=== PATIENT | female | born 1930 | race Caucasian/White ===

== ENCOUNTER 2017-04-21 13:20 | Emergency (ER) | payer MEDICARE, OTHER ==
[~2017-04-21] VITALS: Ht 160 cm; Wt 72.6 kg
[~2017-04-21 13:20] MED LIST: ALBU3IS NEB; AMLO5 PO; ASPI325 PO; ASPI325EC PO; ATOR20 PO; BENTYL10 MG PO; BUDE.5 NEB; CARI350; CITA20 PO; CLOP75 PO; CODACE30 PO; COMBIVENT RESPIM4 GM INH; Cipro500 MG PO; DIOVAN HCT PO; Diovan Hct 1601 EACH PO; FLUSAL1005; FURO20 PO; FURO40; Flagyl500 MG PO; Flonase 0.05% N16 GM; IPRAIS; Isosorbide Mono10 MG PO; K-Dur20 MEQ PO; LANS30EC; LANS30EC PO; LEVSOD75 PO; LOSA25 PO; MULVITMINF; NITR.4SL SL; OLOP.1OPSO BOTHEYES; OMEPRAZOLE MAGN20 MG PO; OXYB5 PO; OXYC5 PO; PANT40 PO; RANO500T PO; RXCODACET PO; Roxicodone5 MG PO; SERT50 PO; SPIHYD PO; Synthroid112 MCG PO; TRAM50; TRAM50 PO; TRAZ50 PO; TRIHYD253A; Zithromax250 MG PO; Zofran Odt4 MG PO
[2017-04-21 13:55] LABS: BASOPHILS ABSOLUTE AUTO 0.03 K/mm3 (0.00-0.23); BASOPHILS PERCENT AUTO 0 % (0-2); EOSINOPHILS ABSOLUTE AUTO 0.09 K/mm3 (0.00-0.68); EOSINOPHILS PERCENT AUTO 1 % (0-6); Hematocrit 38.5 % (33.0-51.0); Hemoglobin 12.4 g/dL (11.5-16.0); IMMATURE GRAN ABSOLUTE AUTO 0.04 K/mm3 (0.00-0.10); IMMATURE GRAN PERCENT AUTO 1 % (0-1); LYMPHOCYTES ABSOLUTE AUTO 3.01 K/mm3 (0.84-5.20); LYMPHOCYTES PERCENT AUTO 34 % (21-46); MONOCYTES ABSOLUTE AUTO 0.58 K/mm3 (0.16-1.47); MONOCYTES PERCENT AUTO 7 % (4-13); Mean Corpuscular HGB 28.6 pg (26.0-34.0); Mean Corpuscular HGB Conc 32.2 g/dL (31.5-36.5); Mean Corpuscular Volume 89 fL (80-100); Mean Platelet Volume 11.5 fL (9.1-12.4); NEUTROPHILS PERCENT AUTO 58 % (41-73); Platelet Count 162 K/mm3 (150-400); RDW Coefficient Variation 14.9 % (11.7-14.2); RDW Standard Deviation 48.5 fL (35.1-46.3); Red Blood Cell Count 4.34 M/mm3 (3.80-5.20); White Blood Cell Count 8.85 K/mm3 (4.00-11.30)
[2017-04-21 14:19] LABS: Alanine Aminotransfer (ALT/SGP 19 U/L (12-78); Albumin, Blood 3.7 g/dL (3.4-5.0); Alk Phos 62 U/L (50-136); Anion Gap 6 mmol/L (6-16); Aspartate Aminotrans (AST/SGOT 18 U/L (12-37); Bilirubin, Total 0.3 mg/dL (0.1-1.0); Blood Urea Nitrogen 14 mg/dL (8-24); Bun/Creatinine Ratio 16.2 (12.0-20.0); CO2, Blood 27 mmol/L (21-32); Chloride, Blood 109 mmol/L (98-108); Creatinine, Blood 0.87 mg/dL (0.40-1.00); Globulin, Blood 3.8 g/dL (2.2-4.0); Glomerular Filtration Rate >60 (60-); Glucose, Blood 94 mg/dL (70-99); Potassium, Blood 3.8 mmol/L (3.5-5.5); Sodium, Blood 142 mmol/L (136-145); Total Protein, Blood 7.5 g/dL (6.4-8.2)
[2017-04-21 15:06] LABS: Troponin I <0.015 ng/mL (0.000-0.040)
[2017-04-21 15:29] LABS: Source, Urine Clean Catch
[2017-04-21 15:32] LABS: Bilirubin, Urine Neg (Neg); Blood, Urine Neg (Neg); Glucose Qualitative, Urine Neg (Neg); Ketones, Urine Neg (Neg); Leukocyte Esterase, Urine 1+ (Neg); Nitrite, Urine Neg (Neg); Protein, Urine Neg (Neg); Specific Gravity, Urine 1.005 (1.003-1.022); Urobilinogen, Urine NORM (Normal)
[2017-04-21 15:49] LABS: Appearance, Urine Clear (Clear); Color, Urine Pale Yellow (P-Yellow)
[2017-04-21 15:50] LABS: Bacteria Few /hpf; Squamous Epithelial Cells Few /hpf (Few)
[2017-04-21] MEDS ORDERED: MECL12.5 PO (16:31)
== END 2017-04-21 17:15 | disposition home or self-care (01) ==
LOC: ER 13:20
PROVIDERS: Emergency Medicine; Nurse Practitioner Family
DX: R42 Dizziness and giddiness (principal); Z88.5 Allergy status to narcotic agent; Z88.2 Allergy status to sulfonamides; Z79.899 Other long term (current) drug therapy; Z79.82 Long term (current) use of aspirin; J44.9 Chronic obstructive pulmonary disease, unspecified; F32.9 Major depressive disorder, single episode, unspecified; I10 Essential (primary) hypertension; E78.5 Hyperlipidemia, unspecified
CPT/HCPCS: 36415; 71046; 80053; 81001; 84484; 85025; 87086; 93005; 93010; 96360; 99284; J7030

== ENCOUNTER 2018-07-27 11:39 | Emergency (ER) | payer MEDICARE, OTHER ==
[~2018-07-27] VITALS: Ht 160 cm; Wt 76.7 kg
[~2018-07-27 11:39] MED LIST changes: +MECL12.5 PO
[2018-07-27 12:29] LABS: BASOPHILS ABSOLUTE AUTO 0.04 K/mm3 (0.00-0.23); BASOPHILS PERCENT AUTO 0 % (0-2); EOSINOPHILS ABSOLUTE AUTO 0.21 K/mm3 (0.00-0.68); EOSINOPHILS PERCENT AUTO 2 % (0-6); Hematocrit 37.7 % (33.0-51.0); Hemoglobin 11.8 g/dL (11.5-16.0); IMMATURE GRAN ABSOLUTE AUTO 0.06 K/mm3 (0.00-0.10); IMMATURE GRAN PERCENT AUTO 1 % (0-1); LYMPHOCYTES ABSOLUTE AUTO 2.74 K/mm3 (0.84-5.20); LYMPHOCYTES PERCENT AUTO 29 % (21-46); MONOCYTES ABSOLUTE AUTO 0.63 K/mm3 (0.16-1.47); MONOCYTES PERCENT AUTO 7 % (4-13); Mean Corpuscular HGB 29.3 pg (26.0-34.0); Mean Corpuscular HGB Conc 31.3 g/dL (31.5-36.5); Mean Corpuscular Volume 94 fL (80-100); Mean Platelet Volume 11.1 fL (9.1-12.4); NEUTROPHILS ABSOLUTE AUTO 5.83 K/mm3 (1.96-9.15); NEUTROPHILS PERCENT AUTO 61 % (41-73); Platelet Count 174 K/mm3 (150-400); RDW Coefficient Variation 14.5 % (11.7-14.2); RDW Standard Deviation 49.3 fL (35.1-46.3); Red Blood Cell Count 4.03 M/mm3 (3.80-5.20); White Blood Cell Count 9.51 K/mm3 (4.00-11.30)
[2018-07-27 12:52] LABS: Alanine Aminotransfer (ALT/SGP 23 U/L (12-78); Albumin, Blood 3.7 g/dL (3.4-5.0); Alk Phos 72 U/L (50-136); Anion Gap 6 mmol/L (6-16); Aspartate Aminotrans (AST/SGOT 27 U/L (12-37); Bilirubin, Total 0.4 mg/dL (0.1-1.0); Blood Urea Nitrogen 19 mg/dL (8-24); Bun/Creatinine Ratio 23.6 (12.0-20.0); CO2, Blood 27 mmol/L (21-32); Calcium, Blood 8.9 mg/dL (8.5-10.1); Chloride, Blood 108 mmol/L (98-108); Globulin, Blood 3.8 g/dL (2.2-4.0); Glomerular Filtration Rate >60 (60-); Glucose, Blood 132 mg/dL (70-99); Potassium, Blood 4.4 mmol/L (3.5-5.5); Sodium, Blood 141 mmol/L (136-145); Total Protein, Blood 7.5 g/dL (6.4-8.2); Troponin I <0.015 ng/mL (0.000-0.040)
[2018-07-27] MEDS ORDERED: Percocet 5-3251 EACH PO (15:29)
== END 2018-07-27 15:37 | disposition home or self-care (01) ==
LOC: ER 11:39
PROVIDERS: Emergency Medicine
DX: S46.001A Unspecified injury of muscle(s) and tendon(s) of the rotator cuff of right shoulder, initial encounter (principal); E11.22 Type 2 diabetes mellitus with diabetic chronic kidney disease; N18.9 Chronic kidney disease, unspecified; J44.9 Chronic obstructive pulmonary disease, unspecified; K21.9 Gastro-esophageal reflux disease without esophagitis; I50.9 Heart failure, unspecified; W19.XXXA Unspecified fall, initial encounter
CPT/HCPCS: 36415; 73030; 80053; 83880; 84484; 85025; 93005; 93010; 99284-25

== ENCOUNTER 2018-11-28 07:50 | Day surgery (SDC) | payer MEDICARE, OTHER ==
[~2018-11-28] VITALS: Ht 134.6 cm; Wt 84.0 kg
[~2018-11-28 07:50] MED LIST changes: +Percocet 5-3251 EACH PO
[2018-11-28] MEDS ORDERED: POTCHL20ER PO (08:14)
[2018-11-28] MEDS ORDERED: OMEPRAZOLE20 MG PO (08:14)
[2018-11-28] MEDS ORDERED: ATOR40TA PO (10:04)
[2018-11-28] MEDS ORDERED: Aspir 8181 MG PO (10:04)
--- NOTE | 2018-11-28 12:35 | NUR ---
DISCHARGE INSTRUCTIONS REVIEWED ALL QUESTIONS ANSWERED. DEFLATED RIGHT TR BAND SITE SOFT WITH NO HEMATOMA AND NO PULSATILE BLEEDING.
--- NOTE | 2018-11-28 12:56 | NUR ---
DEFLATED RIGHT TR BAND REMOVED AND POLYMEM PLACED OVER RIGHT RADIAL SITE AND RIGHT WRIST BOARD IN PLACE. 20 G IV REMOVED FROM LEFT FOREARM WITH INTACT CANNULA. RIGHT RADIAL SITE STILL SOFT WITH NO HEMATOMA AND NO PULSATILE BLEEDING. RIGHT ARM SLING IN PLACED. PT ESCORTED OUT VIA WHEELCHAIR ESCORT.
== END 2018-11-28 13:05 | disposition home or self-care (01) ==
LOC: MHTC 07:50
PROC: B211YZZ Fluoroscopy of Multiple Coronary Arteries using Other Contrast (ICD-10-PCS; principal; 2018-11-28)
PROC: B215YZZ Fluoroscopy of Left Heart using Other Contrast (ICD-10-PCS; principal; 2018-11-28)
PROC: 4A023N7 Measurement of Cardiac Sampling and Pressure, Left Heart, Percutaneous Approach (ICD-10-PCS; principal; 2018-11-28)
DX: I25.10 Atherosclerotic heart disease of native coronary artery without angina pectoris (principal); E78.5 Hyperlipidemia, unspecified; I50.9 Heart failure, unspecified; E11.40 Type 2 diabetes mellitus with diabetic neuropathy, unspecified; I08.3 Combined rheumatic disorders of mitral, aortic and tricuspid valves; E78.00 Pure hypercholesterolemia, unspecified; Z79.899 Other long term (current) drug therapy; Z87.891 Personal history of nicotine dependence; Z88.5 Allergy status to narcotic agent; Z88.2 Allergy status to sulfonamides; Z88.6 Allergy status to analgesic agent
CPT/HCPCS: 93454; 99152; C1769; C1894; J1644; J2250; J3010; J7030; Q9967

== ENCOUNTER 2019-01-19 13:06 | Observation (INO) | payer MEDICARE, OTHER ==
[~2019-01-19] VITALS: Ht 160 cm; Wt 84.0 kg
[~2019-01-19 13:06] MED LIST changes: +ATOR40TA PO; +Aspir 8181 MG PO; +OMEPRAZOLE20 MG PO; +POTCHL20ER PO
[2019-01-19 15:05] LABS: BASOPHILS ABSOLUTE AUTO 0.03 K/mm3 (0.00-0.23); BASOPHILS PERCENT AUTO 0 % (0-2); EOSINOPHILS ABSOLUTE AUTO 0.13 K/mm3 (0.00-0.68); EOSINOPHILS PERCENT AUTO 1 % (0-6); Hematocrit 35.7 % (33.0-51.0); Hemoglobin 11.5 g/dL (11.5-16.0); IMMATURE GRAN ABSOLUTE AUTO 0.02 K/mm3 (0.00-0.10); IMMATURE GRAN PERCENT AUTO 0 % (0-1); LYMPHOCYTES ABSOLUTE AUTO 2.65 K/mm3 (0.84-5.20); LYMPHOCYTES PERCENT AUTO 28 % (21-46); MONOCYTES ABSOLUTE AUTO 0.67 K/mm3 (0.16-1.47); MONOCYTES PERCENT AUTO 7 % (4-13); Mean Corpuscular HGB 29.8 pg (26.0-34.0); Mean Corpuscular HGB Conc 32.2 g/dL (31.5-36.5); Mean Corpuscular Volume 93 fL (80-100); Mean Platelet Volume 10.9 fL (9.1-12.4); NEUTROPHILS PERCENT AUTO 63 % (41-73); Platelet Count 218 K/mm3 (150-400); RDW Coefficient Variation 14.6 % (11.7-14.2); RDW Standard Deviation 49.6 fL (35.1-46.3); Red Blood Cell Count 3.86 M/mm3 (3.80-5.20)
[2019-01-19 15:16] LABS: Alanine Aminotransfer (ALT/SGP 20 U/L (12-78); Albumin, Blood 3.6 g/dL (3.4-5.0); Albumin/Globulin Ratio 0.9 (0.8-1.8); Alk Phos 82 U/L (50-136); Anion Gap 5 mmol/L (6-16); Aspartate Aminotrans (AST/SGOT 15 U/L (12-37); Bilirubin, Total 0.2 mg/dL (0.1-1.0); Blood Urea Nitrogen 19 mg/dL (8-24); Bun/Creatinine Ratio 24.1 (12.0-20.0); CO2, Blood 27 mmol/L (21-32); Calcium, Blood 9.2 mg/dL (8.5-10.1); Chloride, Blood 107 mmol/L (98-108); Creatinine, Blood 0.79 mg/dL (0.40-1.00); Globulin, Blood 4.1 g/dL (2.2-4.0); Glomerular Filtration Rate >60 (60-); Glucose, Blood 121 mg/dL (70-99); Potassium, Blood 4.2 mmol/L (3.5-5.5); Sodium, Blood 139 mmol/L (136-145); Total Protein, Blood 7.7 g/dL (6.4-8.2)
[2019-01-19] MEDS ORDERED: PLAVIX75 MG PO (16:36)
[2019-01-19] MEDS ORDERED: DILTIAZEM PO (16:36)
[2019-01-19] MEDS ORDERED: LOSARTAN POTASS50 MG PO (16:37)
[2019-01-19] MEDS ORDERED: ISOSORBIDE MONO30 MG PO (16:37)
[2019-01-19] MEDS ORDERED: POTCHL20ER PO (17:52)
[2019-01-19] MEDS ORDERED: DOCU100 PO (17:53)
[2019-01-19] MEDS ORDERED: FURO20 PO (17:53)
--- NOTE | 2019-01-19 18:35 | NUR ---
SUMMARY PT ADMITTED FROM THE ER FOR CHEST PAIN, ARRIVED TO THE ROOM CHEST PAIN FREE, ALERT AND ORIENTED, ORIENTED THE PT TO THE ROOM AND CALL SYSTEM
--- NOTE | 2019-01-20 04:45 | NUR ---
SHIFT SUMMARY PT HAS RESTED MOST OF THE NIGHT, SHE HAD A BRIEF EPISOSE OF DULL CHEST PAIN BEFORE 2300. THAT SHE RATED ABOUT 3 (0-10) PAIN SHE SAID IT CAME AND WENT QUICKLY AND LASTED ABOUT 3 MINS. SHE DENIES SOB. TROPONIN'S HAVE BEEN NEGATIVE AND VITALS ARE STABLE. MEDICATED X1 WITH TYLENOL FOR A NITRO HEADACHE. PT HAS NOT HAD ANY OTHER COMAPLINTS SINCE THAT TIME FOR THE REMAINDER OF THE NIGHT. PT A/OX4, INDEPENDENT TO THE BATHROOM AND STEADY ON HER FEET. TELE IN PLACE WITH NSR. BED IN LOWEST POSITION, CALL LIGHT WITHIN REACH. WILL CONTINUE TO MONITOR AND REPORT TO ONCOMING RN.
[2019-01-20 05:51] LABS: BASOPHILS ABSOLUTE AUTO 0.04 K/mm3 (0.00-0.23); BASOPHILS PERCENT AUTO 0 % (0-2); EOSINOPHILS ABSOLUTE AUTO 0.17 K/mm3 (0.00-0.68); EOSINOPHILS PERCENT AUTO 2 % (0-6); Hematocrit 36.9 % (33.0-51.0); Hemoglobin 11.8 g/dL (11.5-16.0); IMMATURE GRAN ABSOLUTE AUTO 0.05 K/mm3 (0.00-0.10); IMMATURE GRAN PERCENT AUTO 1 % (0-1); LYMPHOCYTES ABSOLUTE AUTO 3.42 K/mm3 (0.84-5.20); LYMPHOCYTES PERCENT AUTO 33 % (21-46); MONOCYTES ABSOLUTE AUTO 0.69 K/mm3 (0.16-1.47); MONOCYTES PERCENT AUTO 7 % (4-13); Mean Corpuscular HGB 29.4 pg (26.0-34.0); Mean Corpuscular Volume 92 fL (80-100); Mean Platelet Volume 10.6 fL (9.1-12.4); NEUTROPHILS ABSOLUTE AUTO 6.05 K/mm3 (1.96-9.15); NEUTROPHILS PERCENT AUTO 58 % (41-73); Platelet Count 187 K/mm3 (150-400); RDW Coefficient Variation 14.6 % (11.7-14.2); RDW Standard Deviation 49.7 fL (35.1-46.3); Red Blood Cell Count 4.02 M/mm3 (3.80-5.20); White Blood Cell Count 10.42 K/mm3 (4.00-11.30)
[2019-01-20 06:12] LABS: Alanine Aminotransfer (ALT/SGP 20 U/L (12-78); Albumin, Blood 3.5 g/dL (3.4-5.0); Albumin/Globulin Ratio 0.9 (0.8-1.8); Alk Phos 77 U/L (50-136); Anion Gap 5 mmol/L (6-16); Aspartate Aminotrans (AST/SGOT 17 U/L (12-37); Bilirubin, Total 0.3 mg/dL (0.1-1.0); Blood Urea Nitrogen 16 mg/dL (8-24); Bun/Creatinine Ratio 20.6 (12.0-20.0); CO2, Blood 27 mmol/L (21-32); Calcium, Blood 9.2 mg/dL (8.5-10.1); Chloride, Blood 108 mmol/L (98-108); Creatinine, Blood 0.78 mg/dL (0.40-1.00); Globulin, Blood 3.7 g/dL (2.2-4.0); Glomerular Filtration Rate >60 (60-); Glucose, Blood 112 mg/dL (70-99); Sodium, Blood 140 mmol/L (136-145); Total Protein, Blood 7.2 g/dL (6.4-8.2)
--- NOTE | 2019-01-20 11:56 | NUR ---
Echocardiogram completed.
[2019-01-20] MEDS ORDERED: LISI20 PO (14:56)
[2019-01-20] MEDS ORDERED: FAMO40 PO (14:57)
--- NOTE | 2019-01-20 15:15 | NUR ---
SUMMARY/DISCHARGE PT DISCHARGED TO HOME, PT VERBALIZED UNDERSTANDING OF DISCHARGE INSTRUCTIONS, PT'S DR OFFICE NOTIFIED OF HER DISCHARGE AND THEY WILL CONTACT HER FOR FOLLOW UP, PT TAKEN OUT SAFELY VIA WHEELCHAIR
== END 2019-01-20 15:13 | disposition home or self-care (01) ==
LOC: ER 13:06 → MEDS 16:18 → ENPENDDIS 01-20 14:56 → MEDS 01-20 15:13
PROVIDERS: Emergency Medicine; ADMIT Internal Medicine
DX: R07.9 Chest pain, unspecified (principal); J44.9 Chronic obstructive pulmonary disease, unspecified; I13.0 Hypertensive heart and chronic kidney disease with heart failure and stage 1 through stage 4 chronic kidney disease, or unspecified chronic kidney disease; E11.22 Type 2 diabetes mellitus with diabetic chronic kidney disease; N18.9 Chronic kidney disease, unspecified; I50.9 Heart failure, unspecified; F32.9 Major depressive disorder, single episode, unspecified; I25.10 Atherosclerotic heart disease of native coronary artery without angina pectoris; E78.5 Hyperlipidemia, unspecified; E03.9 Hypothyroidism, unspecified; K21.9 Gastro-esophageal reflux disease without esophagitis; Z95.5 Presence of coronary angioplasty implant and graft; Z87.11 Personal history of peptic ulcer disease; Z90.49 Acquired absence of other specified parts of digestive tract; Z90.710 Acquired absence of both cervix and uterus; Z87.891 Personal history of nicotine dependence; Z88.2 Allergy status to sulfonamides; Z88.5 Allergy status to narcotic agent; Z79.82 Long term (current) use of aspirin; Z79.51 Long term (current) use of inhaled steroids; Z79.02 Long term (current) use of antithrombotics/antiplatelets; Z79.899 Other long term (current) drug therapy
CPT/HCPCS: 36415; 71045; 80053; 83735; 83880; 84484; 85025; 93005; 93010; 93306; 96372; 96374; 99285-25; A9270; G0378; J0360; J1650

== ENCOUNTER 2019-02-23 12:15 | Emergency (ER) | payer MEDICARE, OTHER ==
[~2019-02-23] VITALS: Ht 160 cm; Wt 85.3 kg
[~2019-02-23 12:15] MED LIST changes: +DILTIAZEM PO; +DOCU100 PO; +FAMO40 PO; +ISOSORBIDE MONO30 MG PO; +LISI20 PO; +LOSARTAN POTASS50 MG PO; +PLAVIX75 MG PO
== END 2019-02-23 13:06 | disposition home or self-care (01) ==
LOC: ER 12:15
DX: I10 Essential (primary) hypertension (principal); Z88.2 Allergy status to sulfonamides; Z88.5 Allergy status to narcotic agent; Z79.82 Long term (current) use of aspirin; Z79.899 Other long term (current) drug therapy; J44.9 Chronic obstructive pulmonary disease, unspecified
CPT/HCPCS: 99283

== ENCOUNTER 2019-03-05 20:17 | Emergency (ER) | payer MEDICARE, OTHER ==
[~2019-03-05] VITALS: Ht 160 cm; Wt 81.7 kg
[2019-03-05] MEDS ORDERED: TRAM50 PO (20:54)
[2019-03-05 20:56] LABS: BASOPHILS ABSOLUTE AUTO 0.02 K/mm3 (0.00-0.23); BASOPHILS PERCENT AUTO 0 % (0-2); EOSINOPHILS ABSOLUTE AUTO 0.09 K/mm3 (0.00-0.68); EOSINOPHILS PERCENT AUTO 1 % (0-6); Hemoglobin 11.8 g/dL (11.5-16.0); IMMATURE GRAN ABSOLUTE AUTO 0.04 K/mm3 (0.00-0.10); IMMATURE GRAN PERCENT AUTO 0 % (0-1); LYMPHOCYTES ABSOLUTE AUTO 2.47 K/mm3 (0.84-5.20); LYMPHOCYTES PERCENT AUTO 22 % (21-46); MONOCYTES ABSOLUTE AUTO 0.69 K/mm3 (0.16-1.47); MONOCYTES PERCENT AUTO 6 % (4-13); Mean Corpuscular HGB 29.2 pg (26.0-34.0); Mean Corpuscular HGB Conc 31.9 g/dL (31.5-36.5); Mean Corpuscular Volume 92 fL (80-100); Mean Platelet Volume 10.7 fL (9.1-12.4); NEUTROPHILS ABSOLUTE AUTO 7.85 K/mm3 (1.96-9.15); NEUTROPHILS PERCENT AUTO 70 % (41-73); Platelet Count 188 K/mm3 (150-400); RDW Coefficient Variation 14.4 % (11.7-14.2); RDW Standard Deviation 48.6 fL (35.1-46.3); Red Blood Cell Count 4.04 M/mm3 (3.80-5.20); White Blood Cell Count 11.16 K/mm3 (4.00-11.30)
[2019-03-05] MEDS ORDERED: ALBU90OI INH (20:56)
[2019-03-05 21:16] LABS: Alanine Aminotransfer (ALT/SGP 20 U/L (12-78); Albumin, Blood 3.6 g/dL (3.4-5.0); Albumin/Globulin Ratio 0.9 (0.8-1.8); Alk Phos 72 U/L (50-136); Anion Gap 5 mmol/L (6-16); Aspartate Aminotrans (AST/SGOT 22 U/L (12-37); Bilirubin, Total 0.3 mg/dL (0.1-1.0); Blood Urea Nitrogen 29 mg/dL (8-24); CO2, Blood 26 mmol/L (21-32); Calcium, Blood 8.9 mg/dL (8.5-10.1); Chloride, Blood 108 mmol/L (98-108); Creatinine, Blood 0.91 mg/dL (0.40-1.00); Globulin, Blood 3.9 g/dL (2.2-4.0); Glomerular Filtration Rate >60 (60-); Glucose, Blood 127 mg/dL (70-99); Potassium, Blood 4.2 mmol/L (3.5-5.5); Sodium, Blood 139 mmol/L (136-145); Total Protein, Blood 7.5 g/dL (6.4-8.2); Troponin I <0.015 ng/mL (0.000-0.040)
[2019-03-05] MEDS ORDERED: Medi-Meclizine25 MG PO (21:59)
== END 2019-03-05 22:18 | disposition home or self-care (01) ==
LOC: ER 20:17
PROVIDERS: Emergency Medicine
DX: R07.9 Chest pain, unspecified (principal); R42 Dizziness and giddiness; J44.9 Chronic obstructive pulmonary disease, unspecified; I10 Essential (primary) hypertension; Z79.899 Other long term (current) drug therapy; Z79.01 Long term (current) use of anticoagulants; Z79.51 Long term (current) use of inhaled steroids; Z79.82 Long term (current) use of aspirin
CPT/HCPCS: 36415; 71046; 80053; 83690; 84484; 85025; 93005; 93010; 99284-25; A9270

== ENCOUNTER 2019-06-18 17:10 | Emergency (ER) | payer MEDICARE, OTHER ==
[~2019-06-18] VITALS: Ht 160 cm; Wt 81.7 kg
[~2019-06-18 17:10] MED LIST changes: +ALBU90OI INH; +Medi-Meclizine25 MG PO
[2019-06-18 17:25] LABS: Calcium, Ionized (POC) 1.17 mmol/L (1.10-1.46); Chloride (POC) 104 mmol/L (98-108); Glucose (ISTAT POC) 124 mg/dL (70-99); Hemoglobin (POC) 10.9 g/dL (12.0-16.0); Potassium (POC) 3.5 mmol/L (3.5-5.5); Sodium (POC) 139 mmol/L (135-148); Total CO2 (POC) 24 mmol/L (21-32)
== END 2019-06-18 18:35 | disposition home or self-care (01) ==
LOC: ER 17:10
PROVIDERS: Emergency Medicine
DX: S01.81XA Laceration without foreign body of other part of head, initial encounter (principal); E11.22 Type 2 diabetes mellitus with diabetic chronic kidney disease; N18.9 Chronic kidney disease, unspecified; I50.9 Heart failure, unspecified; J44.9 Chronic obstructive pulmonary disease, unspecified; K21.9 Gastro-esophageal reflux disease without esophagitis; I25.10 Atherosclerotic heart disease of native coronary artery without angina pectoris; Z88.5 Allergy status to narcotic agent; Z88.2 Allergy status to sulfonamides; Z79.899 Other long term (current) drug therapy; Z79.02 Long term (current) use of antithrombotics/antiplatelets; Z79.51 Long term (current) use of inhaled steroids; Z79.82 Long term (current) use of aspirin; W18.30XA Fall on same level, unspecified, initial encounter
CPT/HCPCS: 12002; 70450; 80047; 85014; 93005; 93010; 99284-25

== ENCOUNTER 2020-11-29 14:33 | Emergency (ER) | payer MEDICARE, OTHER ==
[~2020-11-29] VITALS: Ht 162.6 cm; Wt 72.6 kg
[~2020-11-29 14:33] MED LIST changes: -ALBU90OI INH; -ATOR40TA PO; -LOSARTAN POTASS50 MG PO
[2020-11-29 15:06] LABS: Hematocrit 33.4 % (33.0-51.0); Hemoglobin 10.9 g/dL (11.5-16.0); Mean Corpuscular HGB 30.1 pg (26.0-34.0); Mean Corpuscular HGB Conc 32.6 g/dL (31.5-36.5); Mean Corpuscular Volume 92 fL (80-100); Mean Platelet Volume 10.8 fL (9.1-12.4); Platelet Count 159 K/mm3 (150-400); RDW Coefficient Variation 14.9 % (11.7-14.2); RDW Standard Deviation 50.6 fL (35.1-46.3); Red Blood Cell Count 3.62 M/mm3 (3.80-5.20); White Blood Cell Count 7.87 K/mm3 (4.00-11.30)
[2020-11-29 15:25] LABS: Albumin, Blood 2.8 g/dL (3.4-5.0); Albumin/Globulin Ratio 0.7 (0.8-1.8); Bilirubin, Total 0.5 mg/dL (0.1-1.0); Bun/Creatinine Ratio 17.1 (12.0-20.0); Calcium, Blood 8.4 mg/dL (8.5-10.1); Creatinine, Blood 1.46 mg/dL (0.40-1.00); Globulin, Blood 4.2 g/dL (2.2-4.0); Potassium, Blood 3.8 mmol/L (3.5-5.5); Troponin I 0.015 ng/mL (0.000-0.040)
[2020-11-29 16:47] LABS: BASOPHILS PERCENT MAN 0 % (0-2); EOSINOPHILS ABSOLUTE MAN 0.07 K/mm3 (0.00-0.68); EOSINOPHILS PERCENT MAN 1 % (0-6); LYMPHOCYTES % ATYPICAL MANUAL 1 % (0-0); LYMPHOCYTES ABSOLUTE MAN 0.86 K/mm3 (0.84-5.20); LYMPHOCYTES PERCENT MAN 10 % (21-46); MONOCYTES ABSOLUTE MAN 0.15 K/mm3 (0.16-1.47); MONOCYTES PERCENT MAN 2 % (4-13); NEUTROPHILS ABSOLUTE MAN 6.76 K/mm3 (1.96-9.15); SEG NEUTROPHILS PERCENT MAN 86 % (41-73); TOTAL CELLS COUNTED 100
[2020-11-29] MEDS ORDERED: POTA10T PO (16:53)
[2020-11-29] MEDS ORDERED: Prozac20 MG PO (16:54)
[2020-11-29] MEDS ORDERED: DOXY100 PO (17:11)
== END 2020-11-29 18:03 | disposition home or self-care (01) ==
LOC: ER 14:33
PROVIDERS: Emergency Medicine
DX: U07.1 COVID-19 (principal); J12.82 Pneumonia due to coronavirus disease 2019; J44.9 Chronic obstructive pulmonary disease, unspecified; E11.22 Type 2 diabetes mellitus with diabetic chronic kidney disease; N18.9 Chronic kidney disease, unspecified; K21.9 Gastro-esophageal reflux disease without esophagitis; I50.9 Heart failure, unspecified; E78.5 Hyperlipidemia, unspecified; I25.10 Atherosclerotic heart disease of native coronary artery without angina pectoris; Z88.5 Allergy status to narcotic agent; Z88.2 Allergy status to sulfonamides; Z79.899 Other long term (current) drug therapy; Z79.02 Long term (current) use of antithrombotics/antiplatelets; Z79.82 Long term (current) use of aspirin
CPT/HCPCS: 36415; 71045; 80053; 83880; 84484; 85025; 85379; 93005; 93010; 99285-25; A9270

== ENCOUNTER 2020-12-02 12:15 | Inpatient (IN) | payer MEDICARE, OTHER ==
[~2020-12-02] VITALS: Ht 162.6 cm; Wt 79.0 kg
[~2020-12-02 12:15] MED LIST changes: +DOXY100 PO; +POTA10T PO; +Prozac20 MG PO
[2020-12-02] MEDS ORDERED: AMLODIPINE BESYL5 MG PO (13:05)
[2020-12-02] MEDS ORDERED: DOXY100 PO (13:05)
[2020-12-02] MEDS ORDERED: LOSARTAN POTAS100 M1 PO (13:06)
[2020-12-02] MEDS ORDERED: ATOR40TA PO (13:08)
[2020-12-02] MEDS ORDERED: QUETIAPINE FUMA25 MG PO (13:08)
[2020-12-02] MEDS ORDERED: MEMA10 PO (13:09)
[2020-12-02] MEDS ORDERED: SYNTHROID125 MC1 PO (13:09)
[2020-12-02 13:18] LABS: Albumin, Blood 2.6 g/dL (3.4-5.0); Albumin/Globulin Ratio 0.5 (0.8-1.8); Bilirubin, Total 0.5 mg/dL (0.1-1.0); Bun/Creatinine Ratio 29.7 (12.0-20.0); Calcium, Blood 9.5 mg/dL (8.5-10.1); Creatinine, Blood 1.82 mg/dL (0.40-1.00); Globulin, Blood 5.3 g/dL (2.2-4.0); Potassium, Blood 4.7 mmol/L (3.5-5.5); Total Protein, Blood 7.9 g/dL (6.4-8.2); Troponin I 0.089 ng/mL (0.000-0.040)
[2020-12-02 13:47] LABS: BASOPHILS ABSOLUTE AUTO 0.06 K/mm3 (0.00-0.23); BASOPHILS PERCENT AUTO 0 % (0-2); EOSINOPHILS ABSOLUTE AUTO 0.01 K/mm3 (0.00-0.68); EOSINOPHILS PERCENT AUTO 0 % (0-6); Hematocrit 34.5 % (33.0-51.0); Hemoglobin 11.5 g/dL (11.5-16.0); Mean Corpuscular HGB Conc 33.3 g/dL (31.5-36.5); Mean Corpuscular Volume 90 fL (80-100); NRBC ABSOLUTE 0.07 K/mm3 (0.00-0.02); NRBC Auto 0.4 /100 WBC (0.0-0.2); RDW Coefficient Variation 15.4 % (11.7-14.2); RDW Standard Deviation 50.7 fL (35.1-46.3); Red Blood Cell Count 3.83 M/mm3 (3.80-5.20); White Blood Cell Count 19.18 K/mm3 (4.00-11.30)
[2020-12-02 14:05] LABS: Influenza A, PCR NEGATIVE (NEGATIVE); Influenza B, PCR NEGATIVE (NEGATIVE); Resp Syncytial Virus, PCR NEGATIVE (NEGATIVE)
[2020-12-02 14:12] LABS: SARS-Cov-2 (COVID-19) PCR, MMC POSITIVE (NEGATIVE)
[2020-12-02 14:22] LABS: IMMATURE GRAN ABSOLUTE AUTO 0.39 K/mm3 (0.00-0.10); IMMATURE GRAN PERCENT AUTO 2 % (0-1); LYMPHOCYTES ABSOLUTE AUTO 1.84 K/mm3 (0.84-5.20); LYMPHOCYTES PERCENT AUTO 10 % (21-46); MONOCYTES PERCENT AUTO 6 % (4-13); Mean Platelet Volume 10.9 fL (9.1-12.4); NEUTROPHILS ABSOLUTE AUTO 15.78 K/mm3 (1.96-9.15); NEUTROPHILS PERCENT AUTO 82 % (41-73); Platelet Count 459 K/mm3 (150-400)
[2020-12-02] MEDS ORDERED: ALBU90OI INH (14:36)
[2020-12-02 17:16] LABS: Base Excess Venous -7.2 mmol/L; Bicarbonate Venous 18.6 mmol/L (24.0-30.0); PCO2 Venous 36.4 mmHg (38-42); pH Blood Venous 7.32 (7.34-7.37)
--- NOTE | 2020-12-02 21:23 | NUR ---
PT TRANSFERED TO ICU 3 PER ORDER. ALL BELONGINGS WITH PT.
--- NOTE | 2020-12-03 00:55 | NUR ---
RECIEVED REPORT FROM ERWIN RN, PATIENT TRANSFERRED FROM PCU 12 TO ICU 3 @9405. SLID PATIENT TO BED WITH MAXIMUM ASSIST. PATIENT ALERT AND CONFUSED, UNABLE TO FOLLOW COMMANDS, PULLING AT RESTRAINTS ATTEMPTING TO TAKE BIPAP OFF. CALLED HOSPITALIST AND ATIVAN GIVEN. 02 SATS 86% ON BIPAP INITIALLY AND RT TITRATED PRESSURE TO 18/14 FI02 100%. RR IN THE 30s-40s. 02 SATS CURRENTLY 92% ON THOSE SETTINGS. HR IRREGULAR 60s-70s. PATIENT INCONTINENT OF BLADDER, ATTENDS IN PLACE. REPOSITIONED Q2 HOURS. PATIENT DOES NOT TOLERATE ANY STIMULI WELL. ATTEMPTED ORAL CARE BUT PATIENT BEGAN THRASHING AROUND. BILATERAL WRIST RESTRAINT IN PLACE.
[2020-12-03 03:37] LABS: BASOPHILS ABSOLUTE AUTO 0.04 K/mm3 (0.00-0.23); BASOPHILS PERCENT AUTO 0 % (0-2); EOSINOPHILS PERCENT AUTO 0 % (0-6); Mean Corpuscular HGB 30.1 pg (26.0-34.0); Mean Corpuscular HGB Conc 33.3 g/dL (31.5-36.5); Mean Corpuscular Volume 90 fL (80-100); Mean Platelet Volume 10.3 fL (9.1-12.4); NRBC ABSOLUTE 0.07 K/mm3 (0.00-0.02); NRBC Auto 0.4 /100 WBC (0.0-0.2); Platelet Count 374 K/mm3 (150-400); RDW Coefficient Variation 15.2 % (11.7-14.2); RDW Standard Deviation 50.5 fL (35.1-46.3); Red Blood Cell Count 3.32 M/mm3 (3.80-5.20); White Blood Cell Count 15.91 K/mm3 (4.00-11.30)
[2020-12-03 03:38] LABS: IMMATURE GRAN ABSOLUTE AUTO 0.33 K/mm3 (0.00-0.10); IMMATURE GRAN PERCENT AUTO 2 % (0-1); LYMPHOCYTES ABSOLUTE AUTO 1.86 K/mm3 (0.84-5.20); LYMPHOCYTES PERCENT AUTO 12 % (21-46); MONOCYTES ABSOLUTE AUTO 0.65 K/mm3 (0.16-1.47); MONOCYTES PERCENT AUTO 4 % (4-13); NEUTROPHILS ABSOLUTE AUTO 13.03 K/mm3 (1.96-9.15); NEUTROPHILS PERCENT AUTO 82 % (41-73)
[2020-12-03 03:50] LABS: Albumin, Blood 2.3 g/dL (3.4-5.0); Anion Gap 9 mmol/L (6-16); Blood Urea Nitrogen 66 mg/dL (8-24); Bun/Creatinine Ratio 38.8 (12.0-20.0); CO2, Blood 20 mmol/L (21-32); Chloride, Blood 117 mmol/L (98-108); Glomerular Filtration Rate 28 (60-); Glucose, Blood 203 mg/dL (70-99); Phosphorus, Blood 4.2 mg/dL (2.5-4.9); Potassium, Blood 4.2 mmol/L (3.5-5.5); Sodium, Blood 146 mmol/L (136-145)
--- NOTE | 2020-12-03 04:37 | NUR ---
SHIFT SUMMARY PATIENT HAS BECOME SLIGHTLY LESS AGITATED BUT REMAINS CONFUSED AND UNABLE TO FOLLOW COMMANDS, DIFFICULT TO CONSOLE AND UNAWARE OF WHAT IS HAPPENING. REMIANS ON BIPAP 23/01 FI02 100%. RR IN THE 30s. 02 SATS 91-93%. HR SINUS ARRHYTHMIA IN THE 60s-70s. BP STABLE. INCONTNENT OF BLADDER BRIEF IN PLACE. PATIENT TRIES TO PULL BIPAP OFF, WRIST RESTRAINTS REMAIN IN PLACE. Q2 HOUR TURNS. NO BM THIS SHIFT.
--- NOTE | 2020-12-03 08:00 | NUR ---
ASSUMED CARE: REPORT RECEIVED FROM NICOLA Singh RN. ASSUMED CARE OF THIS PT AT APPROX 0700. ON ASSESSMENT, THE PT IS AGITATED. SHE IS AWAKE, BUT ORIENTED TO NONE & UNABLE TO FOLLOW DIRECTIONS. BILAT SOFT WRIST RESTRAINTS IN PLACE FOR PT CONTINUED ATTEMPTS TO REMOVE BIPAP. LS ARE DIM T/O, PT ON BIPAP W/ SETTINGS: 16/12 & 100% FIO2. O2 SATS > 90% ON AVG, DESATS TO 86% W/ INCREASED AGITATION & TACHYPNEA. MONITOR SHOWS SR W/ PACs, HR 60-80s, HTN INCREASED W/ AGITATION. PT NPO R/T BIPAP DEPENDENCE. INCONTINENT OF URINE W/ ATTENDS IN PLACE & DIURESIS PER EMAR. SKIN CONDITION OVERALL FRAGILE & ECCHYMOTIC, Q2H REPISITIONING TO MAINTAIN SKIN INTEGRITY. WILL CONTINUE TO MONITOR & UPDATE NEEDED.
--- NOTE | 2020-12-03 08:10 | NUR ---
DR BLANCO: PLAN OF CARE DISCUSSED W/ THIS PROVIDER. REQUEST FOR INCREASED ATIVAN DOSING/ FREQUENCY OR ADJUNCT MED ORDER TO MANAGE PT AGITATION & ANXIETY. HE STS PRECEDEX MAY BE CONSIDERED FOR THIS PT IF SHE CONTINUES TO NOT TOLERATE BIPAP W/ ATIVAN ORDERED.
--- NOTE | 2020-12-03 08:10 | NUR ---
DR BLANCO: PLAN OF CARE DISCUSSED W/ THIS PROVIDER. REQUEST FOR INCREASED ATIVAN DOSING/ FREQUENCY OR ADJUNCT MED ORDER TO MANAGE PT AGITATION & ANXIETY. HE STS OKAY TO ORDER PRECEDEX IF NECESSARY TO KEEP PT CALM WHILE WEARING BIPAP.
--- NOTE | 2020-12-03 17:19 | NUR ---
SHIFT SUMMARY: NO ACUTE CHANGES THIS SHIFT. PALLIATIVE CARE HAS WORKED CLOSELY W/ PT's SONS TO ENSURE THAT PT's WISHES ARE BEING HONORED - SEE NOTE. PT REMAINS CONFUSED, IS REDIRECTABLE AT TIMES & ALLOWS SOME CARE TO BE PROVIDED THIS SHIFT. SHE HAS TOLERATED PRN DOSES OF ATIVAN WELL & IS ABLE TO REST FOR A SMALL PERIOD OF TIME IN BETWEEN DOSES. LS ARE DIM T/O, PT ON BIPAP W/ SETTINGS: 16/12 & 100% FIO2 W/ O2 SATS > 90% ON AVG. SHE DOES NOT TOLERATE ORAL CARE & BECOMES INCREASINGLY ANXIOUS. MONITOR SHOWS SR W/ PACs, HR 60-80s, BP STABLE. NPO R/T BIPAP DEPENDENCE. INCONTINENT OF URINE, ATTENDS IN PLACE, DIURESIS PER EMAR. SKIN CONDITION OVERALL FRAGILE, ECCHYMOTIC. Q2H REPOSITIONING TO MAINTAIN SKIN INTEGRITY. WILL CONTINUE TO MONITOR & REPORT OFF TO ONCOMING RN.
--- NOTE | 2020-12-03 19:05 | NUR ---
PATIENT REPORT RECEIVED FROM [facility] PATIENT DNR STATUS PATIENT AGITED, CONFUSED SB NOTED IN THE MONITOR BIPAP 23/01 100% SKIN LACERATION IN THE RIGHT ARM LR AT 75 ML/HR WILL TO CONTINUE TO MONITOR
[2020-12-04 03:25] LABS: Hematocrit 31.2 % (33.0-51.0); Hemoglobin 10.4 g/dL (11.5-16.0); Mean Corpuscular HGB Conc 33.3 g/dL (31.5-36.5); Mean Corpuscular Volume 90 fL (80-100); Mean Platelet Volume 10.2 fL (9.1-12.4); NRBC Auto 0.5 /100 WBC (0.0-0.2); Platelet Count 445 K/mm3 (150-400); RDW Coefficient Variation 14.9 % (11.7-14.2); RDW Standard Deviation 49.1 fL (35.1-46.3); Red Blood Cell Count 3.47 M/mm3 (3.80-5.20); White Blood Cell Count 20.44 K/mm3 (4.00-11.30)
[2020-12-04 03:38] LABS: Bun/Creatinine Ratio 48.3 (12.0-20.0); Calcium, Blood 8.9 mg/dL (8.5-10.1); Creatinine, Blood 1.43 mg/dL (0.40-1.00); Potassium, Blood 3.9 mmol/L (3.5-5.5)
--- NOTE | 2020-12-04 09:59 | NUR ---
CARE OF PT ASSUMED AT 0700. ON ASSESSMENT IV TO LEFT AC NOT PATENT, LR AND PRECEDEX ON STANDBY. PT RESTLESS AND DIAPHORETIC, DOES NOT OPEN EYES, DOES NOT FOLLOW COMMANDS, MUMBLES, NO WORDS. POWERGLIDE PLACED TO GILMER. PRECEDEX STARTED AT 0.2MCG, LR AT 75. SATS 89-91%, RESP 30'S. ATTENDS DRY. BP STABLE. HEART RATE DROPPED SLIGHTLY TO 50-60'S AFTER PRECEDEX STARTED, PT REMAINS REESTLESS, BUT LESS SO W PRECEDEX. PT'S SON DEANDRE UPDATED VIA PHONE. FAMILY WILL CONSIDER COMFORT CARE IF SHE CONTINUES TO DECLINE. DR BLANCO AT BEDSIDE THIS AM, FULL UPDATE GIVEN.
--- NOTE | 2020-12-04 11:02 | NUR ---
PT GIVEN BEDBATH, PT VERY CONFUSED FOR BATH, EYES CLOSED, FIGHTING AGAINST CARE, THRASHING, PANICKED. BIPAP MASK REMOVED BRIEFLY TO REPOSITION AND FIX AIR LEAK, SATS DROPPED TO 70%. AIR LEAK 30-40, SATS 90-95%. PRECEDEX REMAINS AT 0.2MCG, PT CALM AND SLEEPING NOW.
--- NOTE | 2020-12-04 13:37 | NUR ---
PT RESTLESS IN BED, EYES CLOSED, RESP RATE 30-TO HIGH 40'S, BP TRENDING UP. PT FOUGHT AGAINST TURN. ATTENDS DRY. PRECEDEX INCREASED TO 0.3MCG. NEW SKIN TEAR TO LEFT ELBOW. STERI-STRIPS AND GAUZE APPLIED
--- NOTE | 2020-12-04 15:06 | NUR ---
PT'S SON AT BEDSIDE, GIVEN FULL UPDATE.
--- NOTE | 2020-12-04 15:33 | NUR ---
Ethics consultation service requested. Case details, prognostic indicators, and medical history reviewed. Advance care planning instrument content and implications discussed with the palliative care office. 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 She is non-compliant with airway support and therefore, she is being managed in soft restraints to prevent further desaturation. Concerns have been expressed that the treatment being imposed on her is overly aggressive, lacks beneficiality detention, and is undignified. Having reviewed her advance directive, and having been apprised of her clinical situation and bleak outlook, I would say that Vicki's stipulated preference would be to avoid invasive and disproportionate therapies, including forced oxygenation. Under normal conditions, the oyxgen delivery system being used, would be classified as non-aggressive. Given her terminal state, improbable recovery, and demand for restraints, I would suggest that in this instance, the treatment is invasive, and therefore against her documented wishes. Thank you for this consult. Navid Gillespie ThD
--- NOTE | 2020-12-04 15:55 | NUR ---
This RN has been working with pt's family, specifically son KRISTIN Singleton regarding pt's wishes vs current treatment plan. Met with both Mani and an older brother yesterday, and at that time they were not willing to discuss comfort care. However today, after speaking with sister Alecia and Mani several times, he did agree to change pt's status to comfort care. Awaiting their arrival now. Dr. Younger agrees, and verbal order given for comfort care. Will initiate this when family arrives.
--- NOTE | 2020-12-04 16:43 | NUR ---
FAMILY AT BEDSIDE. PT NOW COMFORT CARE. RADHA Contreras PALLIATIVE CARE PLACING ORDERS PER DR BLANCO. WILL REMOVE BIPAP AFTER FAMILY ARRIVES.
--- NOTE | 2020-12-04 17:49 | NUR ---
MULTIPLE FAMILY MEMBERS AT BEDSIDE. FAMILY STATED THEY WERE READY TO FOR PT TO BE COMFORTABLE AND TO REMOVE BIPAP. PT PREMEDICATED W MS AND ATIVAN. O2 PLACED AT 6L N/C. SEVERAL MIN AFTER BIPAP MASK REMOVED PT BECAME VERY RESTLESS AND AGITATED. RESP RATE HIGH 40'S, LOW 50'S, PT GASPING AT TIMES. PT MOANING WELL. DILAUDID 2MG FOLLOWED BY HALDOL GIVEN FOR COMFORT PT APPEARED TO BE IN DISTRESS. THIS HELPED SOME BUT PT CONT TO GASP AND MOAN. RT CALLED AND MS UD STARTED. PT NOW COMFORTABLE, EYES OPEN, RESP MORE EVEN AND UNLABORED.
--- NOTE | 2020-12-04 18:38 | NUR ---
PT CONTINUES TO APPEAR COMFORTABLE. RESP ~16, SATS <50%, DUSKY. RESP UNLABORED. FAMILY AT BEDSIDE. FAMILY REQUEST THAT PT IS RELEASED TO [facility].
--- NOTE | 2020-12-04 19:06 | NUR ---
DEANDRE,SHELLY FINN, AND JUSTINA (PT'S CHILDREN) AT BEDSIDE FOR PASSING. YANI LIKE RING GIVEN TO PT'S DAUGHTER, NO OTHER JEWELRY. PJ'S AND UPPER DENTURES W PTKiana THAKUR AT 1853.
== END 2020-12-04 18:53 | DRG 871 ==
LOC: ER 12:15 → PCU 14:41 → ICUE 21:19
PROVIDERS: Emergency Medicine; ADMIT Internal Medicine
PROC: 8E0ZXY6 Isolation (ICD-10-PCS; principal; 2020-12-02)
PROC: 3E0333Z Introduction of Anti-inflammatory into Peripheral Vein, Percutaneous Approach (ICD-10-PCS; 2020-12-02)
PROC: 5A09457 Assistance with Respiratory Ventilation, 24-96 Consecutive Hours, Continuous Positive Airway Pressure (ICD-10-PCS; 2020-12-02)
DX: A41.89 Other specified sepsis (principal); U07.1 COVID-19; J15.9 Unspecified bacterial pneumonia; J96.21 Acute and chronic respiratory failure with hypoxia; J12.82 Pneumonia due to coronavirus disease 2019; I13.0 Hypertensive heart and chronic kidney disease with heart failure and stage 1 through stage 4 chronic kidney disease, or unspecified chronic kidney disease; J44.0 Chronic obstructive pulmonary disease with (acute) lower respiratory infection; J44.1 Chronic obstructive pulmonary disease with (acute) exacerbation; E87.2 Acidosis; R65.20 Severe sepsis without septic shock; Z51.5 Encounter for palliative care; Z66 Do not resuscitate; F03.90 Unspecified dementia, unspecified severity, without behavioral disturbance, psychotic disturbance, mood disturbance, and anxiety; E03.9 Hypothyroidism, unspecified; N18.30 Chronic kidney disease, stage 3 unspecified; E11.22 Type 2 diabetes mellitus with diabetic chronic kidney disease; I35.0 Nonrheumatic aortic (valve) stenosis; F32.A Depression, unspecified; I25.10 Atherosclerotic heart disease of native coronary artery without angina pectoris; K21.9 Gastro-esophageal reflux disease without esophagitis; I50.9 Heart failure, unspecified; Z87.01 Personal history of pneumonia (recurrent); Z90.49 Acquired absence of other specified parts of digestive tract; Z90.710 Acquired absence of both cervix and uterus; Z98.890 Other specified postprocedural states; Z99.81 Dependence on supplemental oxygen; Z88.2 Allergy status to sulfonamides; Z88.5 Allergy status to narcotic agent; Z88.6 Allergy status to analgesic agent; Z79.899 Other long term (current) drug therapy; Z78.1 Physical restraint status
CPT/HCPCS: 0241U; 36415; 71045; 80048; 80053; 80069; 82803; 82947; 83605; 83735; 83880; 84145; 84484; 85025; 85027; 85379; 87040; 93005; 93010; 94640; 94660; 94762; 96365; 96366; 96368; 96375; 99285-25; A9270; C1751; J0456; J0696; J1170; J1630; J1644; J1940; J2060; J2270; J2930; J7050; J7120